=== PATIENT | male | born 1980 | race Caucasian/White ===

== ENCOUNTER 2017-10-17 20:33 | Emergency (ER) | payer OTHER ==
[2017-10-17 20:54] VITALS: BP 133/71; PULSE 114; O2SAT 98
--- NOTE | 2017-10-17 20:55 | ERPHSYRPT ---
- History of Present Illness Time Seen by Provider: 10/17/17 20:45 Source: patient, EMS Exam Limitations: no limitations Physician History: 37 y/o white male, with chronic lbp, presents with low back that began several hours ago. pt denies trauma but states he had a coughing spell of several hard coughs and the pain and back spasms came on. pt states at first he couldnt feel his legs but that resolved. 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 ems brought pt into er and states pt has a known drug abuse hx. pt was moving his legs fine in the ambulance and had normal sensation Timing/Duration: today, hour(s) (several hours ago) Method of Injury: other (no injury) Quality: other (back spasms) Back Pain Location: paraspinous muscles (bilateral and lumbar level) Back Pain Radiation: buttocks Severity of Pain-Max: moderate Severity of Pain-Current: mild Modifying Factors: Improves With: movement (worsens) Associated Symptoms: lower back pain, muscle spasms, No urinary incontinence, No loss of bowel control, No nausea, No vomiting, No problems urinating, No dizziness Previous symptoms: same symptoms as today Allergies/Adverse Reactions: No Known Drug Allergies Allergy (Unverified 10/17/17 20:54) - Review of Systems Constitutional: No Symptoms, No Fever, No Chills Eyes: No Symptoms, No Eye Pain Ears, Nose, & Throat: No Symptoms, No Ear Pain, No Nose Pain, No Nose Congestion Respiratory: No Symptoms, No Cough, No Dyspnea on Exertion ([place]), No Stridor, No Wheezing Cardiac: No Symptoms, No Chest Pain Abdominal/Gastrointestinal: No Symptoms, No Abdominal Pain, No Nausea, No Vomiting, No Diarrhea Genitourinary Symptoms: No Symptoms, No Dysuria, No Frequency, No Hematuria Musculoskeletal: Back Pain Skin: No Symptoms Neurological: No Symptoms, Gait Changes, No Dizziness Psychological: No Symptoms, Drug Abuse, Anxiety Endocrine: No Symptoms Hematologic/Lymphatic: No Symptoms Immunological/Allergic: No Symptoms All Other Systems: Reviewed and Negative - Past Medical History Pertinent Past Medical History: Yes Neurological History: No Pertinent History ENT History: No Pertinent History Cardiac History: No Pertinent History Respiratory History: No Pertinent History Endocrine Medical History: No Pertinent History Musculoskeletal History: No Pertinent History GI Medical History: No Pertinent History History: No Pertinent History Psycho-Social History: No Pertinent History Male Reproductive Disorders: No Pertinent History - Past Surgical History Neuro Surgical History: No Pertinent History Cardiac: No Pertinent History Respiratory: No Pertinent History Gastrointestinal: No Pertinent History Genitourinary: No Pertinent History Musculoskeletal: No Pertinent History Male Surgical History: No Pertinent History - Physical Exam General Appearance: no apparent distress, alert, anxiety Eye Exam: PERRL/EOMI, eyes nml inspection Ears, Nose, Throat Exam: normal ENT inspection Neck Exam: normal inspection, non-tender, supple, full range of motion Respiratory Exam: normal breath sounds, lungs clear, airway intact, No chest tenderness, No respiratory distress, No wheezing, No stridor Cardiovascular Exam: regular rate/rhythm, normal heart sounds, normal peripheral pulses Gastrointestinal Exam: soft, normal bowel sounds, No tenderness, No guarding, No rebound Rectal Exam: not done Back Exam: normal inspection, normal range of motion, muscle spasm (bilaterally at lumbar level), No vertebral tenderness Extremity Exam: normal inspection, normal range of motion, pelvis stable Neurologic Exam: alert, oriented x 3, cooperative, 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 follow up with primary doctor on Friday for further management including MRI if indicated Prescriptions: Carisoprodol 350 mg [Soma 350 mg] 350 mg PO Q8H PRN PRN #10 tablet PRN Reason: Muscle Spasms Prednisone 10 mg [Deltasone 10 mg] 10 mg PO TID #12 tablet
[2017-10-17] MEDS ORDERED: Norflex 60 MG/2 ML IM ONE (21:02)
[2017-10-17] MEDS ORDERED: TORAdol 30 mg Injection IM ONE (21:02)
[2017-10-17] MEDS ORDERED: TORAdol 30 mg Injection ONE (21:05)
[2017-10-17] MEDS ORDERED: Norflex 60 MG/2 ML ONE (21:06)
== END 2017-10-17 21:17 | disposition home or self-care (01) ==
LOC: ED 20:33 → MERGE 20:33 → ED 21:17
DX: M62.830 Muscle spasm of back (principal); M54.40 Lumbago with sciatica, unspecified side
CPT/HCPCS: 96372; 99283; J1885; J2360

== ENCOUNTER 2019-09-02 08:58 | Emergency (ER) | payer MEDICAID ==
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
[2019-09-02 09:08] VITALS: O2SAT 100
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
[2019-09-02] MEDS ORDERED: Hydromorphone 1 mg/ml Ampule IM ONE (09:40)
[2019-09-02] MEDS ORDERED: ZOFRAN ODT 4 MG PO ONE (09:41)
[2019-09-02] MEDS ORDERED: ZOFRAN ODT 4 MG ONE (09:46)
[2019-09-02] MEDS ORDERED: Hydromorphone 1 mg/ml Ampule ONE (09:47)
[2019-09-02] MEDS ORDERED: Hydromorphone 1 mg/ml Ampule IV ONE (09:53)
[2019-09-02 11:50] VITALS: BP 117/75; PULSE 47
== END 2019-09-02 12:27 | disposition home or self-care (01) ==
LOC: ED 08:58
DX: S01.312A Laceration without foreign body of left ear, initial encounter (principal); S42.002A Fracture of unspecified part of left clavicle, initial encounter for closed fracture; R41.0 Disorientation, unspecified; R51 Headache; Y00.XXXA Assault by blunt object, initial encounter; Y93.89 Activity, other specified; Y92.89 Other specified places as the place of occurrence of the external cause
CPT/HCPCS: 12011; 36415; 70450; 72125; 73030; 80307; 96374; 99284; J1170; Q0162; G0480